=== PATIENT | female | born 1950 | race Caucasian/White ===

== ENCOUNTER → 2016-10-16 | Outpatient (CLI) | payer SELFPAY ==
--- NOTE | 2016-10-17 08:41 | MM ---
Reason for exam: screening (asymptomatic). Last mammogram was performed 12 years and 8 months ago. History: Patient is postmenopausal and is nulliparous. Physical Findings: A clinical breast exam by your physician is recommended on an annual basis and results should be correlated with mammographic findings. MG Screening Mammo w CAD Bilateral CC and MLO view(s) were taken. XCCL view(s) were taken of the right breast. Prior study comparison: February 08, 2004, bilateral diagnostic mammogram. November 26, 1999, bilateral screening mammogram. There are scattered fibroglandular densities. Benign calcifications. There is no discrete abnormality. No significant changes when compared with prior studies. ASSESSMENT: Benign, BI-RAD 2 RECOMMENDATION: Routine screening mammogram of both breasts in 1 year.
== END | disposition home or self-care (01) ==
LOC: RADMAMWWP 11:04
PROVIDERS: ATTEND Family Medicine
DX: Z12.31 Encounter for screening mammogram for malignant neoplasm of breast (principal)

== ENCOUNTER → 2018-01-07 | Outpatient (CLI) | payer MEDICARE, OTHER ==
--- NOTE | 2018-01-08 12:40 | MM ---
Reason for exam: screening (asymptomatic). Last mammogram was performed 1 year and 3 months ago. History: Patient is postmenopausal and is nulliparous. Physical Findings: A clinical breast exam by your physician is recommended on an annual basis and results should be correlated with mammographic findings. MG 3D Screening Mammo W/Cad Bilateral CC and MLO view(s) were taken. Prior study comparison: October 16, 2016, bilateral MG screening mammo w CAD. February 08, 2004, bilateral diagnostic mammogram. There are scattered fibroglandular densities. There are benign appearing round diffuse calcifications bilaterally. No suspicious abnormality. No significant changes when compared with prior studies. ASSESSMENT: Benign, BI-RAD 2 RECOMMENDATION: Routine screening mammogram of both breasts in 1 year.
== END | disposition home or self-care (01) ==
LOC: RADMAMWWP 13:14
PROVIDERS: ATTEND Family Medicine
DX: Z12.31 Encounter for screening mammogram for malignant neoplasm of breast (principal)
CPT/HCPCS: 77063; 77067

== ENCOUNTER → 2018-09-14 | Outpatient (CLI) | payer MEDICARE, OTHER | END | disposition home or self-care (01) | LOC: RADECHMAIN 11:29 | PROVIDERS: ATTEND Physician Assistant | DX: R00.8 Other abnormalities of heart beat (principal) | CPT/HCPCS: 93225; 93226 ==

== ENCOUNTER → 2019-01-20 | Outpatient (CLI) | payer MEDICARE, OTHER ==
--- NOTE | 2019-01-21 11:09 | MM ---
Reason for exam: screening (asymptomatic). Last mammogram was performed 1 year ago. History: Patient is postmenopausal and is nulliparous. Physical Findings: A clinical breast exam by your physician is recommended on an annual basis and results should be correlated with mammographic findings. MG 3D Screening Mammo W/Cad Bilateral CC and MLO view(s) were taken. Prior study comparison: January 07, 2018, bilateral MG 3d screening mammo w/cad. October 16, 2016, bilateral MG screening mammo w CAD. There are scattered fibroglandular densities. Stable benign calcifications. There is no discrete abnormality. No significant changes when compared with prior studies. ASSESSMENT: Benign, BI-RAD 2 RECOMMENDATION: Routine screening mammogram of both breasts in 1 year.
== END | disposition home or self-care (01) ==
LOC: RADMAMWWP 08:21 → EEVIPCON 12:40
PROVIDERS: ATTEND Family Medicine
DX: Z12.31 Encounter for screening mammogram for malignant neoplasm of breast (principal)
CPT/HCPCS: 77063; 77067

== ENCOUNTER → 2019-01-20 | Outpatient (CLI) | payer MEDICARE, OTHER ==
--- NOTE | 2019-01-20 10:01 | ECHOF ---
Referral Reason:R06.09 SOB R42 MEASUREMENTS -------- HEIGHT: 154.9 cm WEIGHT: 80.7 kg BP: RVIDd: 3.0 cm (< 3.3) IVSd: 1.0 cm (0.6 - 1.1) LVIDd: 3.8 cm (3.9 - 5.3) LVPWd: 1.3 cm (0.6 - 1.1) IVSs: 1.4 cm LVIDs: 2.1 cm LVPWs: 1.7 cm LAESV Index (A-L): 20.82 ml/m Ao Diam: 2.4 cm (2.0 - 3.7) AV Cusp: 1.5 cm (1.5 - 2.6) LA Diam: 3.3 cm (2.7 - 3.8) MV EXCURSION: 15.618 mm (> 18.000) MV EF SLOPE: 98 mm/s (70 - 150) EPSS: 0.4 cm MV E Piyush: 0.64 m/s MV DecT: 176 ms MV A Piyush: 0.62 m/s MV E/A Ratio: 1.04 RAP: 5.00 mmHg RVSP: 17.49 mmHg FINDINGS -------- Sinus rhythm. This was a technically adequate study. The left ventricular size is normal. There is borderline concentric left ventricular hypertrophy. Overall left ventricular systolic function is normal with, an EF between 55 - 60 %. The diastolic filling pattern is normal for the age of the patient 9.10. The right ventricle is normal in size. Normal LA size by volume 22+/-6 ml/m2. The right atrium was not well visualized. Interatrial and interventricular septum intact. The aortic valve is trileaflet and appears structurally normal. There is no evidence of aortic regu rgitation. There is no evidence of aortic stenosis. No mitral regurgitation. Mild tricuspid regurgitation present. There is no evidence of pulmonary hypertension. The right v entricular systolic pressure, as measured by Doppler, is 17.49mmHg. Trace/mild (physiologic) pulmonic regurgitation. The aortic root size is normal. Normal inferior vena cava with normal inspiratory collapse consistent with estimated right atrial pre ssure of 5 mmHg. There is no pericardial effusion. CONCLUSIONS -------- 1. Sinus rhythm. 2. This was a technically adequate study. 3. The left ventricular size is normal. 4. There is borderline concentric left ventricular hypertrophy. 5. Overall left ventricular systolic function is normal with, an EF between 55 - 60 %. 6. The diastolic filling pattern is normal for the age of the patient 9.10 7. The right ventricle is normal in size. 8. Normal LA size by volume 22+/-6 ml/m2. 9. The right atrium was not well visualized. 10. Interatrial and interventricular septum intact. 11. The aortic valve is trileaflet and appears structurally normal. 12. There is no evidence of aortic regurgitation. 13. There is no evidence of aortic stenosis. 14. No mitral regurgitation. 15. Mild tricuspid regurgitation present. 16. There is no evidence of pulmonary hypertension. 17. The right ventricular systolic pressure, as measured by Doppler, is 17.49mmHg. 18. Trace/mild (physiologic) pulmonic regurgitation. 19. The aortic root size is normal. 20. Normal inferior vena cava with normal inspiratory collapse consistent with estimated right atrial pressure of 5 mmHg. 21. There is no pericardial effusion. PATROL MOTHER: Palak [place] RDCS
--- NOTE | 2019-01-20 10:50 | US ---
EXAMINATION TYPE: US carotid duplex BILAT DATE OF EXAM: 01/20/2019 COMPARISON: NONE CLINICAL HISTORY: R42 Dizziness. Dizzy, HTN EXAM MEASUREMENTS: RIGHT: Peak Systolic Velocity (PSV) cm/sec ----- Right CCA: 97.9 ----- Right ICA: 104.4 ----- Right ECA: 73.4 ICA/CCA ratio: 1.1 RIGHT: End Diastole cm/sec ----- Right CCA: 21.5 ----- Right ICA: 25.4 ----- Right ECA: 13.9 LEFT: Peak Systolic Velocity (PSV) cm/sec ----- Left CCA: 99.8 ----- Left ICA: 84.4 ----- Left ECA: 66.0 ICA/CCA ratio: 0.8 LEFT: End Diastole cm/sec ----- Left CCA: 29.3 ----- Left ICA: 26.0 ----- Left ECA: 7.5 VERTEBRALS (direction of flow): Right Vertebral: Antegrade Left Vertebral: Antegrade Rhythm: Normal Slightly elevated left proximal CCA. No significant stenosis or plaque visualized. No wall thickeni ng. A scale, color Doppler, spectral Doppler imaging performed of the carotid arteries. Waveform anal ysis does not show significant stenosis of the proximal internal carotid arteries. IMPRESSION: No hemodynamic significant stenosis of the proximal internal carotid arteries by Doppler criteria, an indirect measurement of carotid stenosis
== END | disposition home or self-care (01) ==
LOC: RADECHMAIN 08:41
PROVIDERS: ATTEND Family Medicine
DX: I07.1 Rheumatic tricuspid insufficiency (principal); I37.1 Nonrheumatic pulmonary valve insufficiency; R42 Dizziness and giddiness
CPT/HCPCS: 93306; 93880

== ENCOUNTER 2019-02-28 19:02 | Emergency (ER) | payer MEDICARE, OTHER ==
[2019-02-28 19:14] VITALS: RESP 18
[2019-02-28] MEDS ORDERED: ACETAMINOPHEN TAB 325 MG TAB PO STA (19:43)
--- NOTE | 2019-02-28 20:23 | XR ---
EXAMINATION TYPE: XR knee complete RT DATE OF EXAM: 02/28/2019 COMPARISON: NONE HISTORY: Pain TECHNIQUE: 3 views FINDINGS: There is narrowing of the lateral joint space. There is genu valgus deformity. There is non displaced fracture proximal shaft of the fibula. There is a mild to moderate knee joint effusion. IMPRESSION: Acute fracture of the proximal shaft of the fibula. Knee joint effusion. Osteoarthritis.
--- NOTE | 2019-02-28 21:03 | ED ---
Lower Extremity Injury HPI - General Chief Complaint: Extremity Injury, Lower Stated Complaint: fall, rt leg injury Time Seen by Provider: 02/28/19 19:10 Source: patient, family Mode of arrival: wheelchair Limitations: no limitations - History of Present Illness Initial Comments: The patient is a 68-year-old female with past history of hypertension, thyroid disorder and mood disorder who presents to the emergency room in with reported right knee pain. The patient fell outside on a wooden porch earlier this morning because it was slick and she was wearing dress shoes. She twisted her right knee. She denies blunt head trauma or loss of consciousness. Denies syncopal episode. No other injury sustained. She was able to get up and ambulate on the extremity however she was limping. She did go to [place]. When she returned home she was given some Tylenol continued to complain of right knee pain. Her counter tacker did note that she had swelling to the inferior knee and therefore wanted to get her evaluated. She denies any numbness or tingling into her foot. Adamantly denies any ankle or foot pain. No hip pain. There are no other alleviating, precipitating or modifying factors - Related Data Previous Rx's Medication Instructions Recorded Ibuprofen [Motrin] 600 mg PO Q8HR PRN #30 tab 02/28/19 Allergies Allergy/AdvReac Type Severity Reaction Status Date / Time No Known Allergies Allergy Verified 02/28/19 19:13 Review of Systems ROS Statement: Those systems with pertinent positive or pertinent negative responses have been documented in the HPI. ROS Other: All systems not noted in ROS Statement are negative. Past Medical History Past Medical History: Hyperlipidemia, Hypertension, Thyroid Disorder History of Any Multi-Drug Resistant Organisms: None Reported Past Surgical History: Unable to Obtain Past Psychological History: Bipolar, Depression, Schizoaffective Disorder Smoking Status: Never smoker Past Alcohol Use History: None Reported Past Drug Use History: None Reported General Exam Limitations: no limitations General appearance: alert, in no apparent distress Head exam: Present: atraumatic, normocephalic, normal inspection Eye exam: Present: normal appearance, PERRL, EOMI. Absent: scleral icterus, conjunctival injection, periorbital swelling ENT exam: Present: normal exam, mucous membranes moist Neck exam: Present: normal inspection. Absent: tenderness, meningismus, lymphadenopathy Respiratory exam: Present: normal lung sounds bilaterally. Absent: respiratory distress, wheezes, rales, rhonchi, stridor Cardiovascular Exam: Present: regular rate, normal rhythm, normal heart sounds. Absent: systolic murmur, diastolic murmur, rubs, gallop, clicks GI/Abdominal exam: Present: soft, normal bowel sounds. Absent: distended, ten derness, guarding, rebound, rigid Extremities exam: Present: tenderness (around the right knee and proximal fibula. There is significant swelling and ecchymosis to the right knee. Intact knee flexion and extension. No pain at the hip or ankle. 5/5 muscle strength in the b/l le. Negative anterior drawer sign at the knee. 2+ DP and PT pulses. Compartments are soft. Cap refill <2 seconds. Patient seen ambulatory into the ED on the extremity.), normal capillary refill. Absent: pedal edema, joint swelling, calf tenderness Back exam: Present: normal inspection Neurological exam: Present: alert, oriented X3, CN II-XII intact Psychiatric exam: Present: normal affect, normal mood Skin exam: Present: warm, dry, intact, normal color. Absent: rash Course Vital Signs 02/28/19 02/28/19 19:09 21:23 Temperature 98.0 F 98 F Pulse Rate 87 80 Respiratory 18 18 Rate Blood Pressure 158/69 128/78 O2 Sat by Pulse 96 100 Oximetry Medical Decision Making - Medical Decision Making Upon arrival the patient was placed into room 28. A thorough history and physical exam was performed. No signs of septic joint. I did recommend an x- ray which demonstrates acute fracture the proximal shaft of the fibula. Knee joint effusion. Osteoarthritis. I discussed these results with the patient. I do reevaluate her and she continues to state that she has no ankle pain. I did offer sending the patient back for ankle fracture evaluation because of her proximal fibular fracture however the patient refused. She was given Tylenol for pain control which she states helped her pain. I discussed the diagnosis, differential treatment options. At this time the patient will be placed in a knee immobilizer. She'll be given follow-up information for Dr. Lynn gonzalez. She is to weight bear as tolerated. She should rest, ice and elevate the extremity. She will be written off of work. She'll be given a prescription for Motrin. She can alternate taking this with Tylenol. Return to the emergency room for any new or worsening symptoms in the patient was then discharged with stable condition Disposition Clinical Impression: Right fibular fracture, Fall Disposition: HOME SELF-CARE Condition: Stable Instructions (If sedation given, give patient instructions): Leg Fracture (ED) Additional Instructions: Please follow up with the orthopedic doctor in 2-4 days. Return to the emergency room for any new or worsening symptoms Prescriptions: Ibuprofen [Motrin] 600 mg PO Q8HR PRN #30 tab PRN Reason: Pain Is patient prescribed a controlled substance at d/c from ED?: No Referrals: Issa Chamorro DO [Primary Care Provider] - 1-2 days Celso Odell DO [Doctor of Osteopathic Medicine] - 1-2 days Time of Disposition: 21:03
[2019-02-28 21:27] VITALS: BP 128/78; PULSE 80; TEMP 98
== END 2019-02-28 21:28 | disposition home or self-care (01) ==
LOC: EC 19:02
DX: S82.831A Other fracture of upper and lower end of right fibula, initial encounter for closed fracture (principal); M17.11 Unilateral primary osteoarthritis, right knee; W01.0XXA Fall on same level from slipping, tripping and stumbling without subsequent striking against object, initial encounter; X50.1XXA Overexertion from prolonged static or awkward postures, initial encounter; Y92.008 Other place in unspecified non-institutional (private) residence as the place of occurrence of the external cause; Z53.20 Procedure and treatment not carried out because of patient's decision for unspecified reasons
CPT/HCPCS: 99283

== ENCOUNTER 2020-02-04 10:56 | Emergency (ER) | payer MEDICARE, OTHER ==
[2020-02-04 11:15] VITALS: BP 130/77; PULSE 92; RESP 18; TEMP 97.9
--- NOTE | 2020-02-04 12:05 | XR ---
Left ankle HISTORY: Trauma and pain 3 views of the left ankle Soft tissue swelling is present. Ossific density distal to the medial malleolus is well-corticated an d not felt likely to be acute. Posterior malleolar fracture is present without displacement. There is a small plantar spur. Degenerative changes are present at the intertarsal joints. IMPRESSION: Nondisplaced posterior distal tibial fracture
--- NOTE | 2020-02-04 12:28 | ED ---
Fall HPI - General Chief Complaint: Fall Stated Complaint: Fall, L Leg Injury Time Seen by Provider: 02/04/20 11:23 Source: patient, family, RN notes reviewed Mode of arrival: wheelchair Limitations: no limitations - History of Present Illness Initial Comments: This a 69-year-old female presents emergency department chief complaint of left ankle injury. Patient states that she fell coming down couple steps yesterday. Patient states is so painful today. Patient states it hurts when we had her left ankle no knee injury no head injury no loss conscious no back pain. - Related Data Previous Rx's Medication Instructions Recorded Ibuprofen [Motrin] 600 mg PO Q8HR PRN #30 tab 02/28/19 Allergies Allergy/AdvReac Type Severity Reaction Status Date / Time No Known Allergies Allergy Verified 02/04/20 11:14 Review of Systems ROS Statement: Those systems with pertinent positive or pertinent negative responses have been documented in the HPI. ROS Other: All systems not noted in ROS Statement are negative. Past Medical History Past Medical History: Hyperlipidemia, Hypertension, Thyroid Disorder History of Any Multi-Drug Resistant Organisms: None Reported Past Surgical History: No Surgical Hx Reported Past Psychological History: Bipolar, Depression, Schizoaffective Disorder Smoking Status: Never smoker Past Alcohol Use History: None Reported Past Drug Use History: None Reported General Exam Limitations: no limitations General appearance: alert, in no apparent distress Head exam: Present: atraumatic, normocephalic, normal inspection Respiratory exam: Present: normal lung sounds bilaterally. Absent: respiratory distress, wheezes, rales, rhonchi, stridor Cardiovascular Exam: Present: regular rate, normal rhythm, normal heart sounds. Absent: systolic murmur, diastolic murmur, rubs, gallop, clicks Extremities exam: Present: other (Left ankle there is moderate swelling, tenderness with palpation, no proximal tib-fib tenderness no hip tenderness remaining extremity exam within normal limits.) Back exam: Present: full ROM. Absent: tenderness, paraspinal tenderness Neurological exam: Present: alert, oriented X3 Course Vital Signs 02/04/20 11:08 Temperature 97.9 F Pulse Rate 92 Respiratory 18 Rate Blood Pressure 130/77 O2 Sat by Pulse 97 Oximetry Procedures - Orthopedic Splinting/Casting Injury #1 Side: left Lower Extremity Injury Location: short leg, ankle Lower Extremity Immobilizer: posterior splint, synthetic pre-padded splint Medical Decision Making - Medical Decision Making X-ray reviewed shows evidence of posterior tibial fracture. Patient was splinted and will follow-up with orthopedics. Disposition Clinical Impression: Fall, Closed fracture of left distal tibia Disposition: HOME SELF-CARE Condition: Stable Instructions (If sedation given, give patient instructions): Leg Fracture (ED) Additional Instructions: Please return to the Emergency Department if symptoms worsen or any other concerns. Is patient prescribed a controlled substance at d/c from ED?: No Referrals: Issa Chamorro DO [Primary Care Provider] - 1-2 days Ryan Moseley DO [Doctor of Osteopathic Medicine] - 1-2 days Time of Disposition: 12:28
== END 2020-02-04 12:59 | disposition home or self-care (01) ==
LOC: EC 10:56
DX: S82.302A Unspecified fracture of lower end of left tibia, initial encounter for closed fracture (principal); W10.9XXA Fall (on) (from) unspecified stairs and steps, initial encounter
CPT/HCPCS: 29515; 99283

== ENCOUNTER → 2021-09-05 | Outpatient (CLI) | payer MEDICARE, OTHER ==
--- NOTE | 2021-09-10 17:31 | MM ---
Reason for Exam: Screening (asymptomatic). Last mammogram was performed 2 year(s) and 8 month(s) ago. Patient History: Menarche at age 13. Patient has no children. Postmenopausal. Risk Values: Jessica 5 year model risk: 1.9%. NCI Lifetime model risk: 5.6%. Prior Study Comparison: 10/16/2016 Bilateral Screening Mammogram, [facility]. 01/07/2018 Bilateral Screening Mammogram, [facility]. 01/20/2019 Bilateral Screening Mammogram, [facility]. Tissue Density: There are scattered fibroglandular densities. Findings: Analyzed By CAD. Benign terminal calcifications medially. Bilateral small circumscribed isodense low-density masses in a benign pattern. No significant mass, suspicious group of microcalcifications, or other discrete abnormality is seen. Overall Assessment: Benign, BI-RAD 2 Management: Screening Mammogram of both breasts in 1 year. 1. A clinical breast exam by your physician is recommended on an annual basis and results should be correlated with mammographic findings. 2. The patient should continue monthly self breast exams. 3. A negative mammogram should not preclude additional follow-up of suspicious palpable abnormalities. Electronically signed and approved by: Milton Mccarthy M.D. Radiologist
== END | disposition home or self-care (01) ==
LOC: RADMAMWWP 12:56
PROVIDERS: ATTEND Family Medicine
DX: Z12.31 Encounter for screening mammogram for malignant neoplasm of breast (principal); Z78.0 Asymptomatic menopausal state
CPT/HCPCS: 77063; 77067

== ENCOUNTER 2021-11-30 08:38 | Day surgery (SDC) | payer MEDICARE, OTHER ==
[~2021-11-30 08:38] MED LIST: LACTATED RINGERS 1,000 ML IV SCH
[2021-11-30] MEDS ORDERED: LACTATED RINGERS 1,000 ML IV ONE (09:31)
[2021-11-30 09:45] VITALS: TEMP 98.2
[2021-11-30] MEDS ORDERED: LIDOCAINE 2% INJ 20 MG/ML (2 ML VIAL) ONE (10:16)
[2021-11-30] MEDS ORDERED: PROPOFOL 10 MG/ML 20 ML VIAL IV ONE (10:16)
--- NOTE | 2021-11-30 11:06 | P.PCN ---
Date of Procedure: 11/30/21 Procedure(s) Performed: BRIEF HISTORY: Patient is a 71-year-old pleasant female scheduled for an elective colonoscopy as a part of screening for colorectal neoplasia. PROCEDURE PERFORMED: Colonoscopy with snare polypectomy. PREOPERATIVE DIAGNOSIS: Screening for colon cancer. IV sedation per Anesthesia. PROCEDURE: After informed consent was obtained, the patient, was brought into the endoscopy unit. IV sedation was administered by Anesthesia under continuous monitoring. Digital rectal examination was normal. Initially the Olympus CF-160 flexible video colonoscope was then inserted in the rectum, gradually advanced into the cecum without any difficulty. Careful examination was performed as the scope was gradually being withdrawn. Ileocecal valve and the appendiceal orifice were visualized and appeared normal. Prep was excellent. Mucosa of the cecum, appeared normal. Ascending colon there was a 4 mm polyp removed by snare polypectomy. In the transverse colon there was a 3 mm, 4 mm and 5 mm polyp removed by snare polypectomy. Rest of the ascending colon, transverse colon, descending colon, sigmoid colon, and rectum appeared normal. Retroflexion was performed in the rectum and no lesions were seen. The patient tolerated the procedure well. IMPRESSION: 4 mm ascending colon polyp status post polypectomy 3 mm, 4 mm and 5 mm transverse colon polyp status post polypectomy RECOMMENDATIONS: Findings of this examination were discussed with the patient as well as a family. She was advised to follow with the biopsy results. If the biopsy results adenoma she can have a repeat colonoscopy in 5 years..
[2021-11-30 11:10] VITALS: RESP 16
[2021-11-30 11:25] VITALS: BP 130/80; PULSE 80
== END 2021-11-30 11:46 | disposition home or self-care (01) ==
LOC: ORWHC2ENDO 08:38
PROVIDERS: ATTEND Internal Medicine Gastroenterology
DX: Z12.11 Encounter for screening for malignant neoplasm of colon (principal); D12.2 Benign neoplasm of ascending colon; D12.3 Benign neoplasm of transverse colon; I10 Essential (primary) hypertension; E78.5 Hyperlipidemia, unspecified; E07.9 Disorder of thyroid, unspecified; R41.3 Other amnesia; R56.9 Unspecified convulsions; Z79.890 Hormone replacement therapy; Z79.899 Other long term (current) drug therapy
CPT/HCPCS: 45385; J2704; J2001; 88305

== ENCOUNTER → 2022-10-16 | Outpatient (CLI) | payer MEDICARE, OTHER ==
--- NOTE | 2022-10-17 08:33 | MM ---
Reason for Exam: Screening (asymptomatic). Last mammogram was performed 1 year(s) and 1 month(s) ago. Patient History: Menarche at age 13. Patient has no children. Postmenopausal. Risk Values: Jessica 5 year model risk: 1.9%. NCI Lifetime model risk: 5.4%. Prior Study Comparison: 01/07/2018 Bilateral Screening Mammogram, [facility]. 01/20/2019 Bilateral Screening Mammogram, [facility]. 09/05/2021 Bilateral MG 3D screening mammo w/cad, [facility]. Tissue Density: There are scattered fibroglandular densities. Findings: Analyzed By CAD. There is no suspicious group of microcalcifications or new suspicious mass in either breast. Overall Assessment: Benign, BI-RAD 2 Management: Screening Mammogram of both breasts in 1 year. . Patient should continue monthly self-breast exams. A clinical breast exam by your physician is recommended on an annual basis. This exam should not preclude additional follow-up of suspicious palpable abnormalities. Note on Jessica scores and lifetime risk: 1. A Jessica score greater than 3% is considered moderate risk. If this is the case, consider specialist referral to assess eligibility for a risk reducing agent. 2. If overall lifetime risk for the development of breast cancer is 20% or higher, the patient may qualify for future screening with alternating mammogram and breast MRI. Electronically signed and approved by: Derik Morales M.D. Radiologis
== END | disposition home or self-care (01) ==
LOC: RADMAMWWP 09:09
PROVIDERS: ATTEND Family Medicine
DX: Z12.31 Encounter for screening mammogram for malignant neoplasm of breast (principal); Z78.0 Asymptomatic menopausal state
CPT/HCPCS: 77063; 77067

== ENCOUNTER 2023-02-20 18:01 | Emergency (ER) | payer MEDICARE, OTHER ==
[2023-02-20 18:42] VITALS: TEMP 98.1
[2023-02-20] MEDS ORDERED: DIPH,PERTUS(ACELL)TETVAC-LF 0.5 ML VIAL IM ONE (18:45)
[2023-02-20] MEDS ORDERED: LIDOCAINE 1% INJ 10MG/ML (20 ML MDV) SQ ONE (18:45)
--- NOTE | 2023-02-20 19:41 | ED ---
Wound/Laceration HPI - General Chief Complaint: Wound/Laceration Stated Complaint: L Thumb Lac Time Seen by Provider: 02/20/23 18:41 Source: patient Mode of arrival: ambulatory Limitations: no limitations - History of Present Illness Initial Comments: 72-year-old female presenting with chief complaint of laceration to left thumb. Patient was cleaning dishes this evening when she cut her thumb on a knife in the sink. Last tetanus unknown. Bleeding is well-controlled at this time. Laceration is about 2 cm at the distal end of the thumb. Full range of motion intact. No numbness or tingling. - Related Data Home Medications Medication Instructions Recorded Confirmed Asenapine [Saphris] 5 mg SUBLINGUAL HS 11/28/21 11/28/21 Cholecalciferol [Vitamin D3 (25 1,000 unit PO DAILY 11/28/21 11/28/21 Mcg = 1000 Iu)] Cranberry Fruit Concentrate [Azo 250 mg PO DAILY 11/28/21 11/28/21 Cranberry] Divalproex [Depakote] 500 mg PO HS 11/28/21 11/28/21 Divalproex [Depakote] 750 mg PO QAM 11/28/21 11/28/21 Enalapril Maleate 10 mg PO DAILY 11/28/21 11/28/21 Furosemide [Lasix] 20 mg PO DAILY 11/28/21 11/28/21 Levothyroxine Sodium [Synthroid] 100 mcg PO DAILY 11/28/21 11/28/21 Potassium(Unknown Dose) 1 tab PO DAILY 11/28/21 11/28/21 Pravastatin Sodium [Pravachol] 20 mg PO HS 11/28/21 11/28/21 Topiramate [Topamax] 25 mg PO QAM 11/28/21 11/28/21 Topiramate [Topamax] 100 mg PO HS 11/28/21 11/28/21 carBAMazepine [TEGretol] 200 mg PO Q12H 11/28/21 11/28/21 Allergies Allergy/AdvReac Type Severity Reaction Status Date / Time No Known Allergies Allergy Verified 02/20/23 18:28 Review of Systems ROS Statement: Those systems with pertinent positive or pertinent negative responses have been documented in the HPI. ROS Other: All systems not noted in ROS Statement are negative. Past Medical History Past Medical History: Hyperlipidemia, Hypertension, Memory Impairment, Seizure Disorder, Thyroid Disorder Additional Past Medical History / Comment(s): recent hx. of one time rectal bleeding, >16 yrs. since last seizure, slow gait, has hx. falls History of Any Multi-Drug Resistant Organisms: None Reported Past Surgical History: No Surgical Hx Reported Additional Past Surgical History / Comment(s): none known by caregiver Additional Past Anesthesia/Blood Transfusion Reaction / Comment(s): unknown family hx., unknown by caregiver Past Psychological History: Bipolar, Depression, Schizoaffective Disorder Smoking Status: Never smoker Past Alcohol Use History: None Reported Past Drug Use History: None Reported - Past Family History Mother Family Medical History: Unable to Obtain General Exam Limitations: no limitations General appearance: alert, in no apparent distress Head exam: Present: atraumatic, normocephalic, normal inspection Eye exam: Present: normal appearance, EOMI Neck exam: Present: normal inspection, full ROM Respiratory exam: Absent: respiratory distress Neurological exam: Present: alert, oriented X3 Psychiatric exam: Present: normal affect, normal mood Expanded Type of lesion: Present: laceration Course Vital Signs 02/20/23 02/20/23 18:26 19:52 Temperature 98.1 F 98.1 F Pulse Rate 90 7 L Respiratory 20 18 Rate Blood Pressure 176/73 171/82 O2 Sat by Pulse 99 99 Oximetry Procedures - Laceration Laceration #1 Consent Obtained: verbal consent Indication: laceration Site: hand Size (cm): 2 Description: linear Depth: simple, single layer Anesthetic Used: lidocaine 1%, without epi Anesthesia Technique: local infiltration Pre-repair: wound explored, irrigated extensively Type of Sutures: nylon Size of Sutures: 4-0 Number of Sutures: 3 Technique: simple, interrupted Patient Tolerated Procedure: well Medical Decision Making - Medical Decision Making Was pt. sent in by a medical professional or institution (, PA, COMMODITY INDUSTRY ANALYST, urgent care, hospital, or half-way...) When possible be specific @ -[No] Did you speak to anyone other than the patient for history (EMS, parent, family, police, friend...)? What history was obtained from this source @ -[No] Did you review nursing and triage notes (agree or disagree)? Why? @ -[I reviewed and agree with nursing and triage notes] Were old charts reviewed (outside hosp., previous admission, EMS record, old EKG, old radiological studies, urgent care reports/EKG's, half-way records)? Report findings @ -[No old charts were reviewed] Differential Diagnosis (chest pain, altered mental status, abdominal pain women, abdominal pain men, vaginal bleeding, weakness, fever, dyspnea, syncope, headache, dizziness, GI bleed, back pain, seizure, CVA, palpatations, mental health, musculoskeletal)? @ -[not applicable] EKG interpreted by me (3pts min.). @ -[As above] X-rays interpreted by me (1pt min.). @ -[None done] CT interpreted by me (1pt min.). @ -[None done] U/S interpreted by me (1pt. min.). @ -[None done] What testing was considered but not performed or refused? (CT, X-rays, U/S, labs)? Why? @ -[None] What meds were considered but not given or refused? Why? @ -[None] Did you discuss the management of the patient with other professionals (professionals i.e. , PA, COMMODITY INDUSTRY ANALYST, lab, RT, psych nurse, psychologist social, retail department reset, teacher, deck officer, case sealer)? Give summary @ -[No] Was smoking cessation discussed for >3mins.? @ -[No] Was critical care preformed (if so, how long)? @ -[No] Were there social determinants of health that impacted care today? How? (Homele ssness, low income, unemployed, alcoholism, drug addiction, transportation, low edu. Level, literacy, decrease access to med. care, fpc, rehab)? @ -[No] Was there de-escalation of care discussed even if they declined (Discuss DNR or withdrawal of care, Hospice)? DNR status @ -[No] What co-morbidities impacted this encounter? (DM, HTN, Smoking, COPD, CAD, Cancer, CVA, ARF, Chemo, Hep., AIDS, mental health diagnosis, sleep apnea, morbid obesity)? @ -[None] Was patient admitted / discharged? Hospital course, mention meds given and route, prescriptions, significant lab abnormalities, going to OR and other pertinent info. @ -72-year-old female presenting with chief complaint of finger laceration. Unknown if tetanus is up-to-date, tetanus is updated here today. Wound is irrigated and repaired, see procedure note for details.Follow-up with PCP. Report back to ER with any new or worsening symptoms. Discussed return parameters and answered all questions. Patient conveyed verbal understanding and agreed to the plan. I discussed this case in detail with my attending Dr. Bui Undiagnosed new problem with uncertain prognosis? @ -[No] Drug Therapy requiring intensive monitoring for toxicity (Heparin, Nitro, Insulin, Cardizem)? @ -[No] Were any procedures done? @ -laceration repair Diagnosis/symptom? @ -laceration Acute, or Chronic, or Acute on Chronic? @ -acute Uncomplicated (without systemic symptoms) or Complicated (systemic symptoms)? @ -uncomplicated Side effects of treatment? @ -[No] Exacerbation, Progression, or Severe Exacerbation? @ -[No] Poses a threat to life or bodily function? How? (Chest pain, [place], [place], pneumonia, PE, COPD, DKA, ARF, appy, cholecystitis, CVA, Diverticulitis, Homicidal, Agnes cidal, threat to staff... and all critical care pts) @ -[No] Disposition Clinical Impression: Laceration Disposition: HOME SELF-CARE Condition: Good Instructions (If sedation given, give patient instructions): Care For Your Stitches (ED), Finger Laceration (ED) Additional Instructions: Follow-up with PCP. Report back to ER with any new or worsening symptoms. Keep the wound clean and dry and covered. Wash daily with soap and water. Monitor for any signs of infection, including but not limited to redness, swelling, warmth, tenderness, discharge. Sutures may be removed in 10-14 days. Is patient prescribed a controlled substance at d/c from ED?: No Referrals: Issa Chamorro DO [Primary Care Provider] - 1-2 days Time of Disposition: 19:41
[2023-02-20 20:16] VITALS: BP 171/82; PULSE 7; RESP 18
== END 2023-02-20 19:53 | disposition home or self-care (01) ==
LOC: EC 18:01
DX: S61.012A Laceration without foreign body of left thumb without damage to nail, initial encounter (principal); I10 Essential (primary) hypertension; E78.5 Hyperlipidemia, unspecified; E07.9 Disorder of thyroid, unspecified; G40.909 Epilepsy, unspecified, not intractable, without status epilepticus; F31.9 Bipolar disorder, unspecified; F25.9 Schizoaffective disorder, unspecified; Z23 Encounter for immunization; Z79.890 Hormone replacement therapy; Z79.899 Other long term (current) drug therapy; W26.0XXA Contact with knife, initial encounter; Y93.G1 Activity, food preparation and clean up
CPT/HCPCS: 12001 ×2; 99282 ×2; 90471 ×2; 90715; J2001

== ENCOUNTER → 2023-12-24 | Outpatient (CLI) | payer MEDICARE, OTHER ==
--- NOTE | 2023-12-28 12:29 | MM ---
Reason for Exam: Screening (asymptomatic). Last mammogram was performed 1 year(s) and 2 month(s) ago. Patient History: Menarche at age 13. Patient has no children. Postmenopausal. Risk Values: Jessica 5 year model risk: 2.0%. NCI Lifetime model risk: 5.1%. Prior Study Comparison: 01/20/2019 Bilateral Screening Mammogram, [facility]. 09/05/2021 Bilateral MG 3D screening mammo w/cad, [facility]. 10/16/2022 Bilateral MG 3D screening mammo w/cad, [facility]. Tissue Density: There are scattered areas of fibroglandular density. Findings: Analyzed By CAD. The pattern is symmetrical. No significant interval change is evident. Multiple benign-appearing skin calcifications are present No suspicious groups of microcalcifications, spiculated or lobular masses, architectural distortion or other secondary signs of malignancy are mammographically apparent. Overall Assessment: Benign, BI-RAD 2 Management: Screening Mammogram of both breasts in 1 year. A negative mammogram report should not preclude additional follow up of suspicious palpable abnormalities. Patient should continue monthly self breast exam. A clinical breast exam by your physician is recommended on an annual basis and results should be correlated with mammographic findings. Note on Jessica scores and lifetime risk: 1. A Jessica score greater than 3% is considered moderate risk. If this is the case, consider specialist referral to assess eligibility for a risk reducing agent. 2. If overall lifetime risk for the development of breast cancer is 20% or higher, the patient may qualify for future screening with alternating mammogram and breast MRI. [facility], , 12/28/2023 12:26 PM. Electronically signed and approved by: Issa Ng D.O. Radiologis
== END | disposition home or self-care (01) ==
LOC: RADMAMWWP 11:01
PROVIDERS: ATTEND Family Medicine
DX: Z12.31 Encounter for screening mammogram for malignant neoplasm of breast
CPT/HCPCS: 77063; 77067

== ENCOUNTER 2024-09-20 18:45 | Emergency (ER) | payer MEDICARE, OTHER ==
--- NOTE | 2024-09-20 20:54 | ED ---
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 Patient states that she was feeling dizzy causing her to fall and hit her head on the floor. She did have some bleeding from a laceration to the back of her head. No loss of consciousness. She does not take blood thinners. No other extremity injuries. No chest pain or difficulty breathing. No abdominal pain. (Luis Miguel Crowe) This is a 74 female after a fall concern for syncopal evaluation prior to fall with lightheadedness and dizziness prior, 74-year-old who fell in the kitchen hitting her head (Demetri Bui) - Related Data Home Medications Medication Instructions Recorded Confirmed Asenapine [Saphris] 5 mg SUBLINGUAL HS 11/28/21 11/28/21 Cholecalciferol [Vitamin D3 (25 1,000 unit PO DAILY 11/28/21 11/28/21 Mcg = 1000 Iu)] Cranberry Fruit Concentrate [Azo 250 mg PO DAILY 11/28/21 11/28/21 Cranberry] Divalproex [Depakote] 500 mg PO HS 11/28/21 11/28/21 Divalproex [Depakote] 750 mg PO QAM 11/28/21 11/28/21 Enalapril Maleate 10 mg PO DAILY 11/28/21 11/28/21 Furosemide [Lasix] 20 mg PO DAILY 11/28/21 11/28/21 Levothyroxine Sodium [Synthroid] 100 mcg PO DAILY 11/28/21 11/28/21 Potassium(Unknown Dose) 1 tab PO DAILY 11/28/21 11/28/21 Pravastatin Sodium [Pravachol] 20 mg PO HS 11/28/21 11/28/21 Topiramate [Topamax] 25 mg PO QAM 11/28/21 11/28/21 Topiramate [Topamax] 100 mg PO HS 11/28/21 11/28/21 carBAMazepine [TEGretol] 200 mg PO Q12H 11/28/21 11/28/21 Allergies Allergy/AdvReac Type Severity Reaction Status Date / Time No Known Allergies Allergy Verified 09/20/24 19:04 Review of Systems ROS Other: All systems not noted in ROS Statement are negative. <Luis Miguel rCowe - Last Filed: 09/20/24 20:53> ROS Other: All systems not noted in ROS Statement are negative. <Demetri Bui - Last Filed: 09/21/24 00:52> ROS Statement: Those systems with pertinent positive or pertinent negative responses have been documented in the HPI. Past Medical History Past Medical History: Hyperlipidemia, Hypertension, Memory Impairment, Seizure Disorder, Thyroid Disorder Additional Past Medical History / Comment(s): recent hx. of one time rectal bleeding, >16 yrs. since last seizure, slow gait, has hx. falls History of Any Multi-Drug Resistant Organisms: None Reported Past Surgical History: No Surgical Hx Reported Additional Past Surgical History / Comment(s): none known by caregiver Additional Past Anesthesia/Blood Transfusion Reaction / Comment(s): unknown family hx., unknown by caregiver Past Psychological History: Bipolar, Depression, Schizoaffective Disorder Smoking Status: Never smoker Past Alcohol Use History: None Reported Past Drug Use History: None Reported - Past Family History Mother Family Medical History: Unable to Obtain <Luis Miguel Crowe - Last Filed: 09/20/24 20:53> General Exam Limitations: no limitations <Luis Miguel Crowe - Last Filed: 09/20/24 20:53> General appearance: alert, in no apparent distress Head exam: Present: atraumatic, normocephalic, normal inspection Eye exam: Present: normal appearance, PERRL, EOMI. Absent: scleral icterus, conjunctival injection, periorbital swelling ENT exam: Present: normal exam, mucous membranes moist Neck exam: Present: normal inspection. Absent: tenderness, meningismus, lymphadenopathy Respiratory exam: Present: normal lung sounds bilaterally. Absent: respiratory distress, wheezes, rales, rhonchi, stridor Cardiovascular Exam: Present: regular rate, normal rhythm, normal heart sounds. Absent: systolic murmur, diastolic murmur, rubs, gallop, clicks GI/Abdominal exam: Present: soft, normal bowel sounds. Absent: distended, tenderness, guarding, rebound, rigid Extremities exam: Present: normal inspection, full ROM, normal capillary refill. Absent: tenderness, pedal edema, joint swelling, calf tenderness Back exam: Present: normal inspection Neurological exam: Present: alert, oriented X3, CN II-XII intact Psychiatric exam: Present: normal affect, normal mood Skin exam: Present: warm, dry, intact, normal color. Absent: rash <Demetri Bui - Last Filed: 09/21/24 00:52> - General Exam Comments Initial Comments: Visual Physical Exam Vital signs reviewed General: Well-appearing, nontoxic, no acute distress. Head: Normocephalic, atraumatic Eyes: PERRLA, EOMI ENT: Airway patent Chest: Nonlabored breathing Skin: No visual rash, normal skin tone Neuro: Alert and oriented 3 Musculoskeletal: No gross abnormalities (Luis Miguel Crowe) Course <Demetri Bui - Last Filed: 09/21/24 00:52> Vital Signs 09/20/24 09/20/24 19:00 23:28 Temperature 98 F 97.7 F Pulse Rate 86 74 Respiratory 20 16 Rate Blood Pressure 170/70 143/83 O2 Sat by Pulse 97 100 Oximetry - Reevaluation(s) Reevaluation #1: 09/21/24 00:51 Medical records reviewed (Demetri Bui) Reevaluation #2: 09/21/24 00:51 Patient has no syncopal events here in the ER no complaints of headache chest pain shortness of breath or abdominal pain (Demetri Bui) Reevaluation #3: 09/21/24 00:51 Patient informed of results questions answered (Demetri Bui) Reevaluation #4: Was pt. sent in by a medical professional or institution (APRIL Michelle, COLLEGE SCOUTING COORDINATOR, urgent care, hospital, or assisted...) When possible be specific @ -no Did you speak to anyone other than the patient for history (EMS, parent, family, police, friend...)? What history was obtained from this source @ -no Did you review nursing and triage notes (agree or disagree)? Why? @ -agree Are old charts reviewed (outside hosp., previous admission, EMS record, old EKG, old radiological studies, urgent care reports/EKG's, assisted records)? Rep ort findings @ -yes Differential Diagnosis (chest pain, altered mental status, abdominal pain women, abdominal pain men, vaginal bleeding, weakness, fever, dyspnea, syncope, headache, dizziness, GI bleed, back pain, seizure, CVA, palpatations, mental health, musculoskeletal)? @ -prior EKG interpreted by me (3pts min.). @ -yes X-rays interpreted by me (1pt min.). @ -yes negative for acute disease CT interpreted by me (1pt min.). @ -no U/S interpreted by me (1pt. min.). @ -no What testing was considered but not performed or refused? (CT, X-rays, U/S, labs)? Why? @ -none What meds were considered but not given or refused? Why? @ -none Did you discuss the management of the patient with other professionals (professionals i.e. APRIL Michelle, COLLEGE SCOUTING COORDINATOR, lab, RT, psych nurse, social media project manager, provider network analyst, t eacher, compliance review officer, manager of case management)? Give summary @ -no Was smoking cessation discussed for >3mins.? @ -no Was critical care preformed (if so, how long)? @ -no Were there social determinants of health that impacted care today? How? (Homelessness, low income, unemployed, alcoholism, drug addiction, transportation, low edu. Level, literacy, decrease access to med. care, [facility], rehab)? @ -none Was there de-escalation of care discussed even if they declined (Discuss DNR or withdrawal of care, Hospice)? DNR status @ -no What co-morbidities impacted this encounter? (DM, HTN, Smoking, COPD, CAD, Cancer, CVA, ARF, Chemo, Hep., AIDS, mental health diagnosis, sleep apnea, morbid obesity)? @ -none Was patient admitted / discharged? Hospital course, mention meds given and route, prescriptions, significant lab abnormalities, going to OR and other pertinent info. @ - Undiagnosed new problem with uncertain prognosis? @ -no Drug Therapy requiring intensive monitoring for toxicity (Heparin, Nitro, Insulin, Cardizem)? @ -no Were any procedures done? @ -no Diagnosis/symptom? @ - Acute, or Chronic, or Acute on Chronic? @ -Acute Uncomplicated (without systemic symptoms) or Complicated (systemic symptoms)? @ -Complicated Side effects of treatment? @ -no Exacerbation, Progression, or Severe Exacerbation? @ -exacerbation Poses a threat to life or bodily function? How? (Chest pain, [place], [place], pneumonia, PE, COPD, DKA, ARF, appy, cholecystitis, CVA, Diverticulitis, Homicidal, Suicidal, threat to staff... and all critical care pts) @ -yes (Demetri Bui) Reevaluation #5: Differential Syncope: Valvular disease, hypertrophic cardiomyopathy, pulmonary embolism, tamponade, tachycardia, bradycardia, [place], hypovolemia, hemorrhage, dissection, anemia, intracranial hemorrhage, seizure, hypoglycemia, carbon monoxide poisoning, this is not meant to be an all-inclusive list. Differential Headache: Migraine, tension, cluster, carbon monoxide, central venous thrombosis, pension karma temporal arteritis, acute closure glaucoma, intercranial hemorrhage, mastoiditis, sinusitis, head injury, this is not meant to be an all-inclusive list. (Demetri Bui) Medical Decision Making <Luis Miguel Crowe - Last Filed: 09/20/24 20:53> - Lab Data Result diagrams: 09/20/24 22:14 09/20/24 22:14 - EKG Data -: EKG Interpreted by Me - Radiology Data Radiology results: report reviewed (CT brain C-spine chest x-ray is negative for acute disease), image reviewed <Demetri Bui - Last Filed: 09/21/24 00:52> - Medical Decision Making I performed the quick note portion of this visit, electronically signed Luis Miguel Crowe PA-C (Luis Miguel Crowe) 74 female of possible syncopal event fall while in the kitchen hitting head no traumatic injury noted lab testing is normal patient feels well vital signs are normal and stable, patient does not want to stay as an observation for possible syncope would prefer discharge home (Demetri Bui) - Lab Data Lab Results 09/20/24 09/20/24 09/20/24 Range/Units 22:14 22:14 22:14 WBC 8.47 (4.50-10.00) 10*3/uL RBC 3.85 L (4.10-5.20) 10*6/uL Hgb 13.0 (12.0-15.0) g/dL Hct 38.7 (37.2-46.3) % MCV 100.5 H (80.0-97.0) fL MCH 33.8 H (27.0-32.0) pg MCHC 33.6 (32.0-37.0) g/dL Plt Count 203 (140-440) 10*3/uL MPV 11.2 (9.5-12.2) fL Immature Gran % (Auto) 0.7 % Neutrophils % 65.4 % Lymphocytes % 20.3 % Monocytes % 12.6 % Eosinophils % 0.8 % Basophils % 0.2 % Immature Gran # 0.06 H (0.00-0.04) 10*3/uL Neutrophils # 5.53 (1.80-7.70) 10*3/uL Lymphocytes # 1.72 (0.90-5.00) 10*3/uL Monocytes # 1.07 H (0.20-1.00) 10*3/uL Eosinophils # 0.07 (0.04-0.35) 10*3/uL Basophils # 0.02 (0.00-0.10) 10*3/uL Sodium 136 L (137-145) mmol/L Potassium 4.2 (3.5-5.1) mmol/L Chloride 101 (98-107) mmol/L Carbon Dioxide 25 (22-30) mmol/L Anion Gap 10 mmol/L BUN 28 H (7-17) mg/dL Creatinine 0.89 (0.52-1.04) mg/dL Est GFR (CKD-EPI)AfAm 74 (>60 ml/min/1.73 sqM) Est GFR (CKD-EPI)NonAf 65 (>60 ml/min/1.73 sqM) Glucose 104 H (74-99) mg/dL Plasma Lactic Acid Raudel 0.9 (0.7-2.0) mmol/L Calcium 9.3 (8.4-10.2) mg/dL Total Bilirubin 0.3 (0.2-1.3) mg/dL AST 25 (14-36) U/L ALT 13 (4-34) U/L Alkaline Phosphatase 76 (38-126) U/L Troponin I (0.000-0.034) ng/mL Total Protein 6.7 (6.3-8.2) g/dL Albumin 4.0 (3.5-5.0) g/dL 09/20/24 Range/Units 22:14 WBC (4.50-10.00) 10*3/uL RBC (4.10-5.20) 10*6/uL Hgb (12.0-15.0) g/dL Hct (37.2-46.3) % MCV (80.0-97.0) fL MCH (27.0-32.0) pg MCHC (32.0-37.0) g/dL Plt Count (140-440) 10*3/uL MPV (9.5-12.2) fL Immature Gran % (Auto) % Neutrophils % % Lymphocytes % % Monocytes % % Eosinophils % % Basophils % % Immature Gran # (0.00-0.04) 10*3/uL Neutrophils # (1.80-7.70) 10*3/uL Lymphocytes # (0.90-5.00) 10*3/uL Monocytes # (0.20-1.00) 10*3/uL Eosinophils # (0.04-0.35) 10*3/uL Basophils # (0.00-0.10) 10*3/uL Sodium (137-145) mmol/L Potassium (3.5-5.1) mmol/L Chloride (98-107) mmol/L Carbon Dioxide (22-30) mmol/L Anion Gap mmol/L BUN (7-17) mg/dL Creatinine (0.52-1.04) mg/dL Est GFR (CKD-EPI)AfAm (>60 ml/min/1.73 sqM) Est GFR (CKD-EPI)NonAf (>60 ml/min/1.73 sqM) Glucose (74-99) mg/dL Plasma Lactic Acid Raudel (0.7-2.0) mmol/L Calcium (8.4-10.2) mg/dL Total Bilirubin (0.2-1.3) mg/dL AST (14-36) U/L ALT (4-34) U/L Alkaline Phosphatase (38-126) U/L Troponin I <0.012 (0.000-0.034) ng/mL Total Protein (6.3-8.2) g/dL Albumin (3.5-5.0) g/dL Disposition <Luis Miguel Crowe - Last Filed: 09/20/24 20:53> Is patient prescribed a controlled substance at d/c from ED?: No Time of Disposition: 23:30 <Demetri Bui - Last Filed: 09/21/24 00:52> Clinical Impression: Syncope, Fall, Head injury Disposition: HOME SELF-CARE Condition: Good Instructions (If sedation given, give patient instructions): Syncope (ED), Fall Prevention for Older Adults (ED) Referrals: Issa Chamorro DO [Primary Care Provider] - 1-2 days
--- NOTE | 2024-09-20 22:00 | CT ---
EXAMINATION TYPE: CT brain benson wo con DATE OF EXAM: 09/20/2024 9:47 PM COMPARISON: None. CLINICAL INDICATION: Female, 74 years old with history of fall, fall, pain TECHNIQUE: CT of the brain is performed utilizing 3 mm thick sections through the posterior fossa and 3 mm thick sections through the remaining calvarium. Study is performed within 24 hours of arrival to the hospital. Contrast used: mL of , (none if empty) CT DLP: 2412.2 mGycm, Automated exposure control for dose reduction was used. FINDINGS: No abnormal hyperdensity is present to suggest an acute intracranial hemorrhage. No mass lesion is evident. No acute infarcts are evident. Ventricles and sulci are prominent for the patient age. Hyperostosis frontalis internus, normal variant, is present. No acute fractures are evident Paranasal sinuses and mastoid air cells within the [id number] are clear. IMPRESSIONS: 1. No acute intracranial process. Follow-up MRI can be performed as clinically indicated. 2. Atrophy CT cervical spine. COMPARISON: None TECHNIQUE: CT of the cervical spine is performed in the axial plane at 2 mm thick sections. Reconstr ucted images in the coronal, and sagittal plane are reviewed on the computer. FINDINGS: No acute fractures are evident. Vertebral body alignment is normal. Disc heights are preserved. Vertebral body heights are preserved. No spinal canal stenosis is evident. Large anterior vertebral body spurs are present C5-6 small infer ior anterior C6 spur is present. No neural foraminal stenosis is evident. IMPRESSION: 1. No acute osseous abnormality cervical spine. 2. Large anterior vertebral body spurs C5-6 [facility], , 09/20/2024 9:57 PM
[2024-09-20 22:29] LABS: Basophils # (A) 0.02 10*3/uL (0.00-0.10); Basophils % (A) 0.2 %; Eosinophils # (A) 0.07 10*3/uL (0.04-0.35); Eosinophils % (A) 0.8 %; HCT 38.7 % (37.2-46.3); Lymphocytes # (A) 1.72 10*3/uL (0.90-5.00); Lymphocytes % (A) 20.3 %; MCH 33.8 pg (27.0-32.0); MCHC 33.6 g/dL (32.0-37.0); MCV 100.5 fL (80.0-97.0); Mean Platelet Volume 11.2 fL (9.5-12.2); Monocytes # (A) 1.07 10*3/uL (0.20-1.00); Monocytes % (A) 12.6 %; Neutrophils # (A) 5.53 10*3/uL (1.80-7.70); Neutrophils % (A) 65.4 %; Platelet Count 203 10*3/uL (140-440); RBC 3.85 10*6/uL (4.10-5.20); RDW 11.3 % (11.5-14.5); WBC 8.47 10*3/uL (4.50-10.00)
[2024-09-20 22:41] LABS: ALT 13 U/L (4-34); AST 25 U/L (14-36); African American GFR (CKD) 74 (>60 ml/min/1.73 sqM); Alkaline Phosphatase 76 U/L (38-126); Anion Gap 10 mmol/L; Blood Urea Nitrogen 28 mg/dL (7-17); Calcium 9.3 mg/dL (8.4-10.2); Carbon Dioxide 25 mmol/L (22-30); Chloride 101 mmol/L (98-107); Glucose 104 mg/dL (74-99); Non-African American GFR(CKD) 65 (>60 ml/min/1.73 sqM); Potassium 4.2 mmol/L (3.5-5.1); Sodium 136 mmol/L (137-145); Total Bilirubin 0.3 mg/dL (0.2-1.3); Total Protein 6.7 g/dL (6.3-8.2)
[2024-09-20 23:52] VITALS: BP 143/83; RESP 16; TEMP 97.7
[2024-09-20 23:53] VITALS: PULSE 74
== END 2024-09-21 00:41 | disposition home or self-care (01) ==
LOC: EC 18:45
DX: S09.90XA Unspecified injury of head, initial encounter (principal); R55 Syncope and collapse; W18.39XA Other fall on same level, initial encounter
CPT/HCPCS: 36415; 70450; 72125; 80053; 83605; 84484; 85025; 93005; 99284